=== PATIENT | female | born 1950 | race Hispanic/Latino ===

== ENCOUNTER → 2020-08-13 | Outpatient (CLI) | payer MEDICARE ==
[~2020-08-13] MED LIST: AMLO-258 PO; CALC-1105 PO; DICL75TA5 PO; HYDR200T4 PO; HYDR25TA PO; LETR2.5T7 PO; MULTIVITAMIN PO; VITAD50000 PO
== END | disposition home or self-care (01) ==
LOC: OIH 14:52
PROVIDERS: ATTEND Internal Medicine
DX: M19.072 Primary osteoarthritis, left ankle and foot (principal); M19.071 Primary osteoarthritis, right ankle and foot; M77.32 Calcaneal spur, left foot; M77.31 Calcaneal spur, right foot; M19.042 Primary osteoarthritis, left hand; M19.041 Primary osteoarthritis, right hand; M06.9 Rheumatoid arthritis, unspecified
CPT/HCPCS: 73630